=== PATIENT | male | born 1985 | race Caucasian/White ===

== ENCOUNTER 2020-10-08 01:56 | Emergency (ER) | payer MEDICAID, OTHER, SELFPAY ==
[~2020-10-08] VITALS: Ht 167.6 cm; Wt 70.0 kg
[2020-10-08 01:59] VITALS: BP 130/81
[2020-10-08] MEDS ORDERED: LIDOCAINE-MPF 1%, 5ML ONE (02:12)
--- NOTE | 2020-10-08 03:16 | NUR ---
pt walked back to room. I&D set up done. MD to bedside to drain the abcess "bite" on the left wrist. pt tolerated well, no complaints.
--- NOTE | 2020-10-08 03:46 | NUR ---
pt wound drainage bandaged up and dressed and pt comfortable no discomfort noted. discharge and follow up instructions given and pt vu
== END 2020-10-08 03:48 | disposition home or self-care (01) ==
LOC: ED 03:20
DX: L02.414 Cutaneous abscess of left upper limb (principal); L03.114 Cellulitis of left upper limb; F17.200 Nicotine dependence, unspecified, uncomplicated
CPT/HCPCS: 10060; 99283